=== PATIENT | female | born 1955 | race Two or more races ===

== ENCOUNTER → 2024-06-20 | Outpatient (CLI) | payer MEDICARE, BC, SELFPAY ==
[2024-06-20 09:26] LABS: Cardiac Risk Estimate 4.5 RATIO (3.7-5.6); Cholesterol 287 mg/dL (132-200); HDL Cholesterol 64 mg/dL (40-60); LDL Cholesterol,Calculated 201 mg/dL (0-130); Triglycerides 112 mg/dL (30-150)
== END | disposition home or self-care (01) ==
LOC: COPL 07:31
PROVIDERS: PCP Family Medicine; Referring Provider Family Medicine; Visit Provider Family Medicine
DX: E78.2 Mixed hyperlipidemia (principal)
CPT/HCPCS: 36415; 80061

== ENCOUNTER → 2024-07-03 | Outpatient (CLI) | payer MEDICARE, BC, SELFPAY ==
--- NOTE | 2024-07-03 | XR_ITS ---
Examination: PA lateral chest 2 views TECHNIQUE: Upright PA lateral chest 2 views Exam date and time: July 03, 2024 1432 hours Comparison March 06, 2022 INDICATIONS: Coughing beginning 3 days ago. FINDINGS: Stable granulomas in the left upper lobe parenchymal scarring No interval pneumonia or pulmonary edema Normal heart size IMPRESSION: No interval pneumonia or pulmonary edema
== END | disposition home or self-care (01) ==
LOC: CDIM 11:57
PROVIDERS: PCP Family Medicine; Referring Provider Family Medicine; Visit Provider Family Medicine
DX: R05.8 Other specified cough (principal)
CPT/HCPCS: 71046

== ENCOUNTER → 2024-09-23 | Outpatient (CLI) | payer MEDICARE, BC, SELFPAY ==
--- NOTE | 2024-09-23 | XR_ITS ---
Examination: Screening digital mammography, bilateral Computer aided detection 3-D breast Tomosynthesis, bilateral Date and time of exam: 09/23/2024, 8:07 AM Comparisons: 09/22/2023 Indications: Screening Technique: Nonmagnified MLO, CC views of the breasts to been obtained, reconstructed from 3-D Tomosynthesis images. R2 computer aided detection program utilized for evaluation of suspicious masses and/or abnormal calcifications. 3-D Tomosynthesis images obtained. Technologist: Findings: There are scattered areas of fibroglandular density. No evidence of abnormal masses or suspicious calcifications. Impression: BI-RADS category 1: Negative findings (within normal) Recommend 1 year follow-up mammogram
== END | disposition home or self-care (01) ==
LOC: CDIM 07:46
PROVIDERS: Referring Provider Family Medicine; Visit Provider Family Medicine
DX: Z12.31 Encounter for screening mammogram for malignant neoplasm of breast (principal); R92.313 Mammographic fatty tissue density, bilateral breasts
CPT/HCPCS: 77063; 77067

== ENCOUNTER 2024-09-25 00:38 | Emergency (ER) | payer MEDICARE, BC, SELFPAY ==
[2024-09-25] VITALS (7 sets, daily range): BP systolic 114–146; BP diastolic 65–88; PULSE 57–77; RESP 13–19; TEMP 36.4–37.1; O2SAT 95–99; BMI 27.6
--- NOTE | 2024-09-25 | XR_ITS ---
EXAMINATION: MR stroke protocol ORDERING PROVIDER: Brown Castro PA-C HISTORY: Left-sided head numbness and leg weakness x2 days. TECHNIQUE: Multiplanar multisequence magnetic resonance images were obtained of the head and neck utilizing institutional stroke protocol. This includes [id number] imaging of the head and neck vasculature through the [place]. 2-D and 3-D reformats were created on a separate workstation and submitted for interpretation. COMPARISON: 09/25/2024, noncontrast head CT. FINDINGS: BRAIN: No evidence of focal lesion, mass, hemorrhage, or infarction. No restricted diffusion. VENTRICLES: Within normal limits EXTRA-AXIAL SPACES: No masses or abnormal fluid collections. Patent basilar cisterns and sulci. VASCULAR: Major intracranial flow voids are intact. CRANIOCERVICAL JUNCTION/OTHER FINDINGS: No Chiari I malformation. PARANASAL SINUSES, MASTOIDS, AND ORBITS: Unremarkable. Anterior, middle, posterior cerebral arteries are patent without visible aneurysm or large vessel occlusion. Anterior communicating artery is present without aneurysm. Posterior communicating arteries are not definitely visualized. Superior cerebellar arteries proximally patent. There appear to be common origins of the bilateral anterior inferior and posterior inferior cerebellar arteries, which are proximally patent. Vascular imaging of the neck is motion degraded. The origins of the cervical carotid and vertebral arteries are not well defined. There is no high-grade stenosis or evidence of dissection of the cervical carotid or vertebral arteries. IMPRESSION: 1. No imaging evidence for acute ischemia, intracranial hemorrhage, mass effect, or midline shift. 2. No high-grade stenosis or aneurysmal dilation of the [place]. 3. No high-grade stenosis of the cervical vertebral or carotid arteries.
--- NOTE | 2024-09-25 01:04 | XR_ITS ---
EXAMINATION: XR chest 1V portable ORDERING PROVIDER: Brown Castro PA-C HISTORY: Weakness TECHNIQUE: Single portable AP radiograph of the chest. COMPARISON: 07/03/2024, 03/06/2022 chest radiographs FINDINGS: Lines and Tubes: None. Lungs: No consolidation. No new airspace opacities. Dating back to at least 2021, there is an unchanged 1.1 cm cylindrical density projecting over the right lung apex, 6 mm nodular opacity projecting over the left lung apex, and a thin 7.5 cm linear opacity projecting over the left lateral midlung. Findings probably represent sequela of old infection such as granulomatous disease and scarring. Pleura: No pneumothorax or pleural effusion. Biapical pleural-based scarring Cardiomediastinal Silhouette: Uncoiled aorta. Cardiac silhouette normal in size. Soft Tissues/Bones: Mild bony degenerative changes. IMPRESSION: No acute pulmonary findings.
--- NOTE | 2024-09-25 01:04 | XR_ITS ---
Examination: CT brain head without contrast. 2-D sagittal coronal reconstructions Date and time of exam:September 26, 2019 5018 hrs. Indications: Left-sided body numbness left leg weakness beginning today CTDI: vol (mGy):43.5 DLP: (mGycm):822 Technique: Multiple CT axial sections of the brain have been obtained, 5 mm slice thickness. Contrast has not been administered. 2-D sagittal, coronal reconstructions have been obtained Low dose protocols were performed. One or more of the following dose reduction techniques were used; automated exposure control, adjustment of the mA and/or KV according to patient size, use of iterative reconstruction technique. Findings: No significant ventricular enlargement. Intra-axial or extra-axial hemorrhage density is not seen. No mass effect or midline shift Basal cisterns are not remarkable. Fourth ventricle is midline. Cranial vault intact. Impression: Negative for acute hemorrhage, mass effect or midline shift Consider brain MRI follow-up, stroke protocol
--- NOTE | 2024-09-25 01:05 | PD.EDRME ---
Rapid Medical Screening Exam [facility] Arrival date/time: 09/25/24 00:38 69F with history of HLD presents to ED with 2 days (Monday night onset) of L-sided facial numbness/TRIMBLE, as well as L-sided weakness/numbness. Patient states symptoms worse at night. Patient denies URI symptoms. Chief Complaint: General Adult/Misc Complain Vital signs: Vital Signs Temperature 97.8 F 09/25/24 00:51 Pulse Rate 68 09/25/24 00:51 Respiratory Rate 18 09/25/24 00:51 Blood Pressure 146/88 H 09/25/24 00:51 Pulse Oximetry (%) 98 03 00:51
[2024-09-25 01:30] LABS: Basophils % (Auto) 1 % (0-2.5); Collection Type, Urine Clean Catch; Eosinophils # (Auto) 0.1 Thou/mm3 (0.0-0.5); Eosinophils % (Auto) 1 % (0-10); Hematocrit 42.8 % (36.0-46.0); Hemoglobin 14.1 g/dL (12.0-16.0); Immature Granulocytes % (Auto) 0 % (0-0); Immature Granulocytes Auto 0.01 Thou/mm3 (0.00-0.00); Lymphocytes # (Auto) 1.6 Thou/mm3 (1.0-4.8); Lymphocytes % (Auto) 27 % (10-50); Mean Corpuscular HGB Conc 32.9 g/dl (31.0-37.0); Mean Corpuscular Hemoglobin 30.1 pg (25.0-35.0); Mean Corpuscular Volume 92 fL (80-100); Monocytes # (Auto) 0.4 Thou/mm3 (0.0-0.8); Monocytes % (Auto) 7 % (0-12); Neutrophils # (Auto) 3.7 Thou/mm3 (1.8-7.7); Neutrophils % (Auto) 63 % (37-80); Nucleated Red Blood Cell % 0 /100 WBC (0); Platelet Count 244 Thou/mm3 (140-440); Red Blood Count 4.68 Miln/mm3 (4.00-5.20); White Blood Count 5.8 Thou/mm3 (3.6-11.0)
[2024-09-25 01:35] LABS: Bilirubin,Urine Negative (Negative); Blood,Urine Negative (Negative); Clarity,Urine Clear (Clear/Hazy); Color,Urine Colorless (Lt Yel-Yel); Glucose, Urine Negative (Negative); Ketones,Urine Negative (Negative); Leukocyte Esterase,Urine Positive (Negative); Nitrite,Urine Negative (Negative); Protein,Urine Negative (Neg - Trace); RBC,Urine < 1 /hpf (0-3); Specific Gravity,Urine 1.005 (1.001-1.035); Squamous Epithelial Cell,Urine 1 /hpf (0-5); Urobilinogen,Urine Negative mg/dL (0.0-1.0); WBC,Urine < 1 /hpf (0-5)
[2024-09-25 01:49] LABS: Partial Thromboplastin Time 27.3 Seconds (22.0-36.0); Prothrombin Time 10.6 Seconds (9.0-12.2)
[2024-09-25 01:51] LABS: Alanine Aminotransferase 29 U/L (10-49); Albumin, Serum 4.6 gm/dL (3.4-4.8); Albumin/Globulin Ratio 1.8 (1.2-2.2); Alkaline Phosphatase 73 U/L (46-116); Anion Gap 8 (7-16); Aspartate Amino Transferase 29 U/L (0-34); BUN/Creatinine Ratio 16 Ratio (12-20); Bilirubin,Total 0.6 mg/dL (0.3-1.2); Blood Urea Nitrogen 11 mg/dL (9-23); Calcium 10.6 mg/dL (8.3-10.6); Calcium (Corrected) 10.6 mg/dL (8.5-10.1); Carbon Dioxide 30.7 mMol/L (20.0-31.0); Chloride 105 mMol/L (98-107); Creatinine (Component) 0.7 mg/dL (0.6-1.3); Estimated Creatinine Clearance 68.8 mL/min (>60); Globulin 2.6 gm/dL (2.3-3.5); Glucose 115 mg/dL (74-106); Osmolality,Calculated 287 (275-295); Potassium 3.8 mMol/L (3.4-5.1); Sodium 144 mMol/L (136-145); Total Protein 7.2 gm/dL (5.7-8.2); Troponin I < 0.002 ng/mL (0.0-0.045); eGFR > 60 See Note
--- NOTE | 2024-09-25 02:35 | PRELIM_ITS ---
CT scan of the head without intravenous contrast (axial sections with sagittal and coronal reformats) September 25, 2024 at 0148 hours Clinical history: Headache, left-sided numbness. Comparison: None. Findings: There is no evidence of intracranial hemorrhage, mass effect or midline shift. There are periventricular white matter hypodensities, compatible with chronic small vessel ischemia. There is mild volume loss. The calvarium is unremarkable. The mastoid air cells and the visualized paranasal sinuses are clear. Impression: No evidence of intracranial hemorrhage, mass effect or midline shift. Periventricular chronic small vessel ischemia and volume loss. Aspect score 10. Report Electronically Signed By: Lux Muir 09/25/2024 2:34:24 AM [EST]
--- NOTE | 2024-09-25 07:07 | EDNOTE_ITS ---
ED General RME/HPI General Chief complaint: General Adult/Misc Complain Stated complaint: LEFT SIDE HEAD NUMBNESS, LEFT LEG WEAK Arrival date/time: 09/25/24 00:38 RME / HPI RME / HPI narrative: 09/25/24 00:38 69F with history of HLD presents to ED with 2 days (Monday night onset) of L- sided facial numbness/TRIMBLE, as well as L-sided weakness/numbness. Patient states symptoms worse at night. Patient denies URI symptoms. DR. SAN MAIN ED EVALUATION: 69 year old female with past medical history significant for GERD and hypercholesterolemia presents to the Emergency Department with complaints of numbness head left side, weakness to the left leg onset Monday night. Symptoms are better in the day, worse when goes to sleep. Patient had similar symptoms more frequently about 4 yrs ago. Related Data Home Medications ?Medication ?Instructions ?Recorded ?Confirmed calcium 600 mg (as 1 tab PO QDAY 03/27/2403/27 carbonate)-vitamin D3 5 mcg (200 unit) tablet Allergies Allergy/AdvReac Type Severity Reaction Status Date / Time No Known Allergies Allergy Verified 03/27/24 11:09 Review of Systems Review of Systems Systems Reviewed: All systems reviewed, normal except as documented Narrative Review of Systems: GEN: No fever, no chills, no weight loss EYES: No discharge, no visual changes, no pain HEENT: No ear pain, no congestion, no sore throat PULM: No shortness of breath, no cough, no congestion CV: No chest pain, no dyspnea on exertion, no palpitations GI: No nausea, no vomiting, no diarrhea, no pain, no constipation : No frequency, no urgency and no dysuria MUSC/SKEL: No joint pain, no back pain SKIN: No rash PSYCH: No hallucinations, no depression HEME/LYMPH: No easy bleeding or bruising tendencies NEURO: No headache, + numbness head left side, + weakness to the left leg Past Medical History Past Medical History CARDIAC: Positive Cardiac Disorders and Hypercholesterolemia (NO MEDS) GASTROINTESTINAL: Positive Gastrointestinal Disorders (ABDOMINAL PAIN) REPRODUCTIVE: Positive Previous Pregnancies OTHER HISTORY: Positive Chicken Pox and Measles Surgical History SURGICAL: Positive Hysterectomy Social History SMOKING STATUS: Never smoker SUBSTANCE USE: does not use ALCOHOL: Never ED Exam Narrative Physical exam: GENERAL APPEARANCE: alert and oriented x 4, well-developed, well-nourished, no acute distress VITALS: All vitals were reviewed and the pulse ox is 96% on room air, which is normal according to my interpretation. HEENT: Normocephalic, atraumatic; pupils equal, round, reactive to light; EOMI; mucous membranes pink, moist; oropharynx clear NECK: Supple LUNGS: CTABL; no wheezes, no rales, no rhonchi HEART: Regular rate, regular rhythm; normal S1, S2; no murmurs ABDOMEN: non distended; normal BS; soft, no tenderness, no guarding, no rebound; no masses, no organomegaly, no hernia BACK: no CVA tenderness EXTREMITIES: atraumatic; no edema NEUROLOGIC: awake; alert and oriented x4; cranial nerves II-XII grossly intact; no focal sensory or motor deficits PSYCHIATRIC: appropriate mood and affect SKIN: warm, dry, normal color; no rashes Course Quality Measures none Orders Category Date Time Status Blood glucose [Bedside Blood Glucose] NOW Care 09/25/24 00:41 Active EKG (ED ONLY) *Do not use* NOW Care 09/25/24 00:41 Completed MRI Screening NOW Care 09/25/24 04:[address] head/brain wo con Stat Exams 09/25/24 01:04 Completed EKG (ED Only) Stat Exams 09/25/24 00:41 Ordered MR stroke protocol Stat Exams 09/25/24 Completed XR chest 1V portable Stat Exams 09/25/24 01:04 Completed CBC Stat Lab 09/25/24 01:25 Completed Comprehensive Metabolic Panel Stat Lab 09/25/24 01:25 Completed INR [Prothrombin Time with INR] Stat Lab 09/25/24 01:25 Completed PTT [Partial Thromboplastin Time] Stat Lab 09/25/24 01:25 Completed Troponin I Stat Lab 09/25/24 01:25 Completed Urinalysis Stat Lab 09/25/24 01:25 Completed Vital Signs Vital signs: Vital Signs Temperature 97.8 F 09/25/24 00:51 Pulse Rate 68 09/25/24 00:51 Respiratory Rate 18 09/25/24 00:51 Blood Pressure 146/88 H 09/25/24 00:51 Pulse Oximetry (%) 98 09/25/24 00:51 Procedures -ED EKG Interpretation #1: Date of EK09/25/24 Time of EK:55 Rate: 71 Interpretation: Interpreted by me Additional EKG comment: sinus rhythm, rate 71, mild flattening in ST segment in anterior and lateral leads MDM Patient data External records reviewed:: [facility] previous records (Reviewed colonoscopy note by Dr. Chew dated 03/27/24. ) Clinical information provided by:: patient Social determinants that could affect healthcare access:: none Patient has the following chronic illnesses:: GERD and hypercholesterolemia How is presenting disease/condition affected by chronic disease/condition?: u neffected by Evaluation data The following diagnostics were reviewed and interpreted by me:: lab results, radiology exam(s) and EKG tracing(s) (EKG#1: EKG at 0055 hours. Interpreted by me: sinus rhythm, rate 71, mild flattening in ST segment in anterior and lateral leads) Lab and/or radiology exams considered but not ordered:: none Interpretation Summary: Procedure(s): CT head/brain wo con Accession Number(s): [id number] cc: George Schmidt MD; Codie Emmanuel MD; Brown Castro PA-C~ Examination: CT brain head without contrast. 2-D sagittal coronal reconstructions Date and time of exam:September 26, 2019 5018 hrs. Indications: Left-sided body numbness left leg weakness beginning today CTDI: vol (mGy):43.5 DLP: (mGycm):822 Technique: Multiple CT axial sections of the brain have been obtained, 5 mm slice thickness. Contrast has not been administered. 2-D sagittal, coronal reconstructions have been obtained Low dose protocols were performed. One or more of the following dose reduction techniques were used; automated exposure control, adjustment of the mA and/or KV according to patient size, use of iterative reconstruction technique. Findings: No significant ventricular enlargement. Intra-axial or extra-axial hemorrhage density is not seen. No mass effect or midline shift Basal cisterns are not remarkable. Fourth ventricle is midline. Cranial vault intact. Impression: Negative for acute hemorrhage, mass effect or midline shift Consider brain MRI follow-up, stroke protocol Dictated By: George Schmidt MD Procedure(s): XR chest 1V portable Accession Number(s): [id number] cc: Craig Toledo MD; Codie Emmanuel MD; Brown Castro PA-C~ EXAMINATION: XR chest 1V portable ORDERING PROVIDER: Brown Castro PA-C HISTORY: Weakness TECHNIQUE: Single portable AP radiograph of the chest. COMPARISON: 07/03/2024, 03/06/2022 chest radiographs FINDINGS: Lines and Tubes: None. Lungs: No consolidation. No new airspace opacities. Dating back to at least 2021, there is an unchanged 1.1 cm cylindrical density projecting over the right lung apex, 6 mm nodular opacity projecting over the left lung apex, and a thin 7.5 cm linear opacity projecting over the left lateral midlung. Findings probably represent sequela of old infection such as granulomatous disease and scarring. Pleura: No pneumothorax or pleural effusion. Biapical pleural-based scarring Cardiomediastinal Silhouette: Uncoiled aorta. Cardiac silhouette normal in size. Soft Tissues/Bones: Mild bony degenerative changes. IMPRESSION: No acute pulmonary findings. Dictated By: Craig Toledo MD Procedure(s): MR stroke protocol Accession Number(s): [id number] cc: Craig Toledo MD; Codie Emmanuel MD; Brown Castro PA-C~ EXAMINATION: MR stroke protocol ORDERING PROVIDER: Brown Castro PA-C HISTORY: Left-sided head numbness and leg weakness x2 days. TECHNIQUE: Multiplanar multisequence magnetic resonance images were obtained of the head and neck utilizing institutional stroke protocol. This includes [id number] imaging of the head and neck vasculature through the [place]. 2-D and 3-D reformats were created on a separate workstation and submitted for interpretation. COMPARISON: 09/25/2024, noncontrast head CT. FINDINGS: BRAIN: No evidence of focal lesion, mass, hemorrhage, or infarction. No restricted diffusion. VENTRICLES: Within normal limits EXTRA-AXIAL SPACES: No masses or abnormal fluid collections. Patent basilar cisterns and sulci. VASCULAR: Major intracranial flow voids are intact. CRANIOCERVICAL JUNCTION/OTHER FINDINGS: No Chiari I malformation. PARANASAL SINUSES, MASTOIDS, AND ORBITS: Unremarkable. Anterior, middle, posterior cerebral arteries are patent without visible aneurysm or large vessel occlusion. Anterior communicating artery is present without aneurysm. Posterior communicating arteries are not definitely visualized. Superior cerebellar arteries proximally patent. There appear to be common origins of the bilateral anterior inferior and posterior inferior cerebellar arteries, which are proximally patent. Vascular imaging of the neck is motion degraded. The origins of the cervical carotid and vertebral arteries are not well defined. There is no high-grade stenosis or evidence of dissection of the cervical carotid or vertebral arteries. IMPRESSION: 1. No imaging evidence for acute ischemia, intracranial hemorrhage, mass effect, or midline shift. 2. No high-grade stenosis or aneurysmal dilation of the [place]. 3. No high-grade stenosis of the cervical vertebral or carotid arteries. Dictated By: Craig Toledo MD Medications Medications considered but not ordered:: none Medication administrations:: see above if any Consultations Consultation(s) initiated? (list below): No Diagnosis Differential Diagnosis ED Complaint MDM: TIA, CVA, sepsis, brain bleed Most likely diagnosis given after review of the tests above:: Paresthesia Admission Indicated Admission indicated?: not indicated Explain why admission is indicated or not indicated:: Patient has no emergent abnormalities on his studies and can be managed on an outpatient basis. Admission Request Was there a request for admission?: No Disposition Plan Disposition Plan: Discharge Discharge Attestation Discharge Attestation: The patient and all family members were given an opportunity to ask questions and understood the discharge instructions. Discharge instructions specifically effects, indications for sooner follow up or return to the emergency department, and the expected course of current diagnosis. Patient condition: Stable Medical Decision Making MDM Narrative MDM Narrative: Crys Fried, am scribing for and in the presence of Dr. San. Differential Diagnosis Differential Diagnosis: TIA, CVA, sepsis, brain bleed Lab Data 09/25/24 01:25 09/25/24 01:25 Labs: Lab Results 09/25/24 Range/Units 01:25 WBC 5.8 (3.6-11.0) Thou/mm3 RBC 4.68 (4.00-5.20) Miln/mm3 Hgb 14.1 (12.0-16.0) g/dL Hct 42.8 (36.0-46.0) % MCV 92 (80-100) fL MCH 30.1 (25.0-35.0) pg MCHC 32.9 (31.0-37.0) g/dl RDW Std Deviation 43.0 (36.4-46.3) fL Plt Count 244 (140-440) Thou/mm3 Neut % (Auto) 63 (37-80) % Lymph % (Auto) 27 (10-50) % Person % (Auto) 7 (0-12) % Eos % (Auto) 1 (0-10) % Baso % (Auto) 1 (0-2.5) % Neut # (Auto) 3.7 (1.8-7.7) Thou/mm3 Lymph # (Auto) 1.6 (1.0-4.8) Thou/mm3 Person # (Auto) 0.4 (0.0-0.8) Thou/mm3 Eos # (Auto) 0.1 (0.0-0.5) Thou/mm3 Baso # (Auto) 0.0 (0.0-0.2) Thou/mm3 Immature Gran # (Auto) 0.01 H (0.00-0.00) Thou/mm3 Absolute Nucleated RBC 0.00 (0.00-0.00) Thou/mm3 Immature Gran % 0 (0-0) % Nucleated RBC % 0 (0) /100 WBC PT 10.6 (9.0-12.2) Seconds INR 1.0 (0.9-1.3) APTT 27.3 (22.0-36.0) Seconds Sodium 144 (136-145) mMol/L Potassium 3.8 (3.4-5.1) mMol/L Chloride 105 (98-107) mMol/L Carbon Dioxide 30.7 (20.0-31.0) mMol/L Anion Gap 8 (7-16) BUN 11 (9-23) mg/dL Creatinine 0.7 (0.6-1.3) mg/dL Estim Creat Clear Calc 68.8 (>60) mL/min eGFR > 60 (60 - ) See Note BUN/Creatinine Ratio 16 (12-20) Ratio Glucose 115 H (74-106) mg/dL Calculated Osmolality 287 (275-295) Calcium 10.6 (8.3-10.6) mg/dL Corrected Calcium 10.6 H (8.5-10.1) mg/dL Total Bilirubin 0.6 (0.3-1.2) mg/dL AST 29 (0-34) U/L ALT 29 (10-49) U/L Alkaline Phosphatase 73 (46-116) U/L Troponin I < 0.002 (0.0-0.045) ng/mL Total Protein 7.2 (5.7-8.2) gm/dL Albumin 4.6 (3.4-4.8) gm/dL Globulin 2.6 (2.3-3.5) gm/dL Albumin/Globulin Ratio 1.8 (1.2-2.2) Ur Collection Type Clean Catch Urine Color Colorless A (Lt Yel-Yel) Urine Clarity Clear (Clear/Hazy) Urine pH 7.0 (5.0-7.0) Ur Specific [place] 1.005 (1.001-1.035) Urine Protein Negative (Neg - Trace) Urine Glucose (UA) Negative (Negative) Urine Ketones Negative (Negative) Urine Blood Negative (Negative) Urine Nitrite Negative (Negative) Urine Bilirubin Negative (Negative) Urine Urobilinogen (Auto) Negative (0.0-1.0) mg/dL Ur Leukocyte Esterase Positive (Negative) Urine RBC < 1 (0-3) /hpf Urine WBC < 1 (0-5) /hpf Ur Squamous Epith Cells 1 (0-5) /hpf Urine Bacteria None (None) Discharge Plan Plan Patient Disposition: HOME (Self Care) Prescriptions/Referrals Prescriptions/Med Rec: No Action calcium carbonate-vitamin D3 600 mg-5 mcg (200 unit) tablet 1 tab PO QDAY Patient Comments: TOME SELINA TABLETA DOS VECES AL D A CON ALIMENTO Referrals: Codie Peraza MD [Primary Care Provider] - In 1 week Problem List Clinical Impression: Paresthesia Patient/Caregiver Discharge Instructions Education Materials: ED Paraesthesias Print Language: Romanian Stand Alone Forms: April Award Info., Patient Portal Info Letter
--- NOTE | 2024-09-25 10:48 | PC.NURSE ---
PER DR. LINDSAY, PT OK TO EAT AT THIS TIME.
== END 2024-09-25 13:48 | disposition home or self-care (01) ==
PROVIDERS: Physician Assistant; Emergency Provider Emergency Medicine; PCP Family Medicine
DX: R20.0 Anesthesia of skin (principal); R20.2 Paresthesia of skin; R53.1 Weakness
CPT/HCPCS: 36415; 70450; 70544; 71045; 80053; 81001; 84484; 85025; 85610; 85730; 93005; 99284

== ENCOUNTER → 2024-09-30 | Outpatient (CLI) | payer MEDICARE, BC, SELFPAY ==
[2024-09-30 10:14] LABS: Basophils # (Auto) 0.1 Thou/mm3 (0.0-0.2); Basophils % (Auto) 1 % (0-2.5); Eosinophils # (Auto) 0.1 Thou/mm3 (0.0-0.5); Eosinophils % (Auto) 2 % (0-10); Hematocrit 40.8 % (36.0-46.0); Hemoglobin 13.7 g/dL (12.0-16.0); Immature Granulocytes % (Auto) 0 % (0-0); Immature Granulocytes Auto 0.01 Thou/mm3 (0.00-0.00); Lymphocytes # (Auto) 1.6 Thou/mm3 (1.0-4.8); Lymphocytes % (Auto) 38 % (10-50); Mean Corpuscular HGB Conc 33.6 g/dl (31.0-37.0); Mean Corpuscular Volume 90 fL (80-100); Monocytes # (Auto) 0.3 Thou/mm3 (0.0-0.8); Monocytes % (Auto) 8 % (0-12); Neutrophils # (Auto) 2.2 Thou/mm3 (1.8-7.7); Neutrophils % (Auto) 51 % (37-80); Nucleated Red Blood Cell % 0 /100 WBC (0); Platelet Count 212 Thou/mm3 (140-440); Red Blood Count 4.56 Miln/mm3 (4.00-5.20); White Blood Count 4.3 Thou/mm3 (3.6-11.0)
[2024-09-30 10:57] LABS: Alanine Aminotransferase 23 U/L (10-49); Albumin, Serum 4.2 gm/dL (3.4-4.8); Albumin/Globulin Ratio 1.8 (1.2-2.2); Alkaline Phosphatase 74 U/L (46-116); Anion Gap 10 (7-16); Aspartate Amino Transferase 15 U/L (0-34); BUN/Creatinine Ratio 22 Ratio (12-20); Bilirubin,Total 0.5 mg/dL (0.3-1.2); Blood Urea Nitrogen 13 mg/dL (9-23); Calcium 9.5 mg/dL (8.3-10.6); Calcium (Corrected) 9.5 mg/dL (8.5-10.1); Carbon Dioxide 28.5 mMol/L (20.0-31.0); Cardiac Risk Estimate 3.6 RATIO (3.7-5.6); Chloride 104 mMol/L (98-107); Cholesterol 204 mg/dL (132-200); Creatinine (Component) 0.6 mg/dL (0.6-1.3); Globulin 2.4 gm/dL (2.3-3.5); Glucose 89 mg/dL (74-106); HDL Cholesterol 57 mg/dL (40-60); LDL Cholesterol,Calculated 124 mg/dL (0-130); Osmolality,Calculated 282 (275-295); Sodium 142 mMol/L (136-145); Total Protein 6.6 gm/dL (5.7-8.2); Triglycerides 114 mg/dL (30-150); eGFR > 60 See Note
== END | disposition home or self-care (01) ==
LOC: COPL 09:06
PROVIDERS: PCP Family Medicine; Referring Provider Family Medicine; Visit Provider Family Medicine
DX: K21.9 Gastro-esophageal reflux disease without esophagitis (principal); E78.2 Mixed hyperlipidemia
CPT/HCPCS: 36415; 80053; 80061; 84443; 85025

== ENCOUNTER → 2024-12-06 | Outpatient (CLI) | payer MEDICARE, BC, SELFPAY ==
--- NOTE | 2024-12-06 | XR_ITS ---
Examination: Right ankle 2 views Technique one AP lateral right ankle 2 views Date and time: December 06, 2024 at 1238 hours INDICATIONS: Patient fell one week ago with injury to the ankle, ankle pain. FINDINGS: No fracture or dislocation 10 mm plantar bony calcaneal spur IMPRESSION: No fracture or dislocation
== END | disposition home or self-care (01) ==
PROVIDERS: PCP Family Medicine; Referring Provider Family Medicine; Visit Provider Family Medicine
DX: S99.911A Unspecified injury of right ankle, initial encounter (principal); W19.XXXA Unspecified fall, initial encounter
CPT/HCPCS: 73600

== ENCOUNTER → 2025-03-20 | Outpatient (CLI) | payer MEDICARE, BC, SELFPAY ==
[2025-03-20 11:04] LABS: Cardiac Risk Estimate 3.6 RATIO (3.7-5.6); Cholesterol 203 mg/dL (132-200); HDL Cholesterol 57 mg/dL (40-60); LDL Cholesterol,Calculated 118 mg/dL (0-130); Triglycerides 139 mg/dL (30-150)
== END | disposition home or self-care (01) ==
LOC: COPL 09:12
PROVIDERS: PCP Family Medicine; Referring Provider Family Medicine; Visit Provider Family Medicine
DX: E78.00 Pure hypercholesterolemia, unspecified (principal)
CPT/HCPCS: 36415; 80061